=== PATIENT | female | born 1965 | race Two or more races ===

== ENCOUNTER 2018-04-05 06:38 | Day surgery (SDC) | payer OTHER ==
[~2018-04-05 06:38] MED LIST: EPINEPHRINE (1:1000) MDV 30 MG/30ML VIAL ONE
[2018-04-05] MEDS ORDERED: LIDOCAINE HCL/PF 1% 30 ML SDV ONE (06:42)
[2018-04-05] MEDS ORDERED: ROCURONIUM BROMIDE 50 MG/5 ML ONE (08:08)
[2018-04-05] MEDS ORDERED: MIDAZOLAM HCL 2 MG/2ML VIAL ONE (08:08)
[2018-04-05] MEDS ORDERED: BUPIVACAINE MPF 0.75% 30 ML VIAL ONE (08:10)
[2018-04-05] MEDS ORDERED: methylPREDNISolone ACETATE 80 MG/ML VIAL ONE (08:56)
[2018-04-05] MEDS ORDERED: FENTANYL PF 100MCG/2ML AMPUL ONE (09:32)
[2018-04-05] MEDS ORDERED: oxyCODONE/APAP (5/325 MG) 1 UDTAB TABLET ONE (10:13)
== END 2018-04-05 10:40 | disposition home or self-care (01) ==
LOC: DS 06:38
PROVIDERS: ATTEND Specialist
DX: M75.42 Impingement syndrome of left shoulder (principal); M19.012 Primary osteoarthritis, left shoulder; M65.812 Other synovitis and tenosynovitis, left shoulder; M24.112 Other articular cartilage disorders, left shoulder; G89.18 Other acute postprocedural pain
CPT/HCPCS: 29822; 29824; 29826; 64415; 84703; 88304; 88311; A4217; J0171; J1040; J2250; J3010; J3490 ×2; J7120